=== PATIENT | male | born 1960 | race Caucasian/White ===

== ENCOUNTER 2021-03-19 07:32 | Day surgery (SDC) | payer BC ==
[2021-03-14 09:21] LABS: Absolute Lymphocytes (CBC) 1.8 K/uL (0.7-4.9); Hematocrit 42.2 % (39.6-49.0); Lymphocytes % 22.8 % (15.3-44.8); MPV 7.3 fL (7.6-11.3); RBC Red Blood Cell Count 4.63 M/uL (4.33-5.43)
[2021-03-14 09:30] LABS: Potassium 3.9 mmol/L (3.5-5.1)
--- NOTE | 2021-03-14 09:35 | RAD REPORT ---
EXAM DESCRIPTION: RAD - Chest Pa And Lat (2 Views) - 03/14/2021 9:16 am CLINICAL HISTORY: Pre Op COMPARISON: No comparisons FINDINGS: Lines: None. Lungs: No evidence of edema or pneumonia. Pleural: No significant pleural effusions or pneumothorax. Cardiac: The heart size is within normal limits. Bones: No acute fractures. Other: IMPRESSION: No acute cardiopulmonary disease.
--- NOTE | 2021-03-14 16:36 | EKG ---
Test Date: 2021-03-14 Test Time: 07:59:30 Panel Wirer: CRYSTLA MEASUREMENT RESULTS: Intervals: Rate: 54 [place]: 172 QRSD: 98 QT: 376 QTc: 356 [place]: P: 78 [place]: 172 QRS: 89 T: 76 INTERPRETIVE STATEMENTS: Sinus bradycardia Otherwise normal ECG No previous ECG available for comparison Electronically Signed On 03-14-21 16:35:27 CDT by Hardeep Walker
[2021-03-19] MEDS ORDERED: Ringers Lactate 1,000 ML IV ONE ×2 (08:13→12:31)
[2021-03-19] MEDS ORDERED: CEFAZOLIN/NS 1gm 1 GM/50 ML BAG ONE (08:13)
[2021-03-19] MEDS ORDERED: CELECOXIB 100 MG CAPSULE ONE (09:20)
[2021-03-19] MEDS ORDERED: ACETAMINOPHEN 500 MG TAB ONE (09:21)
--- NOTE | 2021-03-19 09:46 | P.HP ---
Date of Service: 03/19/21 PC: This 60-year-old male presents for a laparoscopic repair of a recurrent left inguinal hernia. HPC: Patient apparently had an open hernia repair done a number of years ago. Recently noticed a painful bulge in that area. Has pain radiating down to his testicle, and can feel that the bulge has returned. PSHx: NAD PMHx: Negative Social Hx: No known allergies Sys R: No cough, wheeze, shortness of breath. No chest pain or palpitations. Denies any urinary symptoms. O/E: Awake alert vital signs are stable HEENT: Within normal limits Chest: Chest movement equal bilaterally Abd: Soft nontender, in the left inguinal area has a palpable recurrence of his hernia [place]: Intact Data: Within normal limits Impression: Recurrent left inguinal hernia Plan: I will taken the operating room for laparoscopic repair of this recurrent left inguinal hernia. The risks of this procedure have been discussed. The possibility of bleeding, infection, injury to bowel blood vessels and surrounding structures was outlined. Once again the possibility of recurrence, infection, need for further surgeries and procedures was outlined. Chronic pain and other long-term effects were described. He understands and wants us to proceed.
[2021-03-19] MEDS ORDERED: FENTANYL CITR 100 MCG/2 ML ONE ×2 (09:56→11:06)
[2021-03-19] MEDS ORDERED: MIDAZOLAM HCL 2 MG/2 ML INJ ONE (09:57)
[2021-03-19] MEDS ORDERED: dexAMETHasone 10 MG/ML VIAL ONE (09:57)
[2021-03-19] MEDS ORDERED: ONDANSETRON 4 MG/2 ML VIAL ONE (09:57)
[2021-03-19] MEDS ORDERED: KETOROLAC 30 MG/ML INJ ONE (09:57)
[2021-03-19] MEDS ORDERED: LIDOCAINE 2% MPF 5 ML VIAL ONE (09:57)
[2021-03-19] MEDS ORDERED: propofoL 200 MG/20 ML VIAL IV ONE (09:57)
[2021-03-19] MEDS ORDERED: Phenylephrine HCl 10 MG/ML 1 ML VIAL ONE (10:19)
[2021-03-19] MEDS ORDERED: NS 0.9% VIAL 10 ML ONE (10:19)
[2021-03-19] MEDS ORDERED: EPHEDRINE SULF 50 MG/ML VIAL ONE (10:19)
[2021-03-19] MEDS ORDERED: ROCURONIUM 50 MG/5 ML VIAL IV ONE (11:20)
[2021-03-19] MEDS ORDERED: GLYCOPYRROLATE 0.2 MG/ML SYR ONE (11:38)
--- NOTE | 2021-03-19 11:56 | P.OP ---
Preoperative diagnosis: Painful recurrent left inguinal hernia Postoperative diagnosis: The same Primary procedure: Laparoscopic repair of recurrent left inguinal hernia Secondary procedure: Removal of hernia plug Other procedure(s): Tap block Anesthesia: General anesthesia Estimated blood loss: Less than 15 cc Specimen: Old hernia plug sent for ID Operative Technique: The patient brought the operating room and placed supine on the table. After the induction of adequate general endotracheal anesthesia, there the abdomen was prepped with a DuraPrep solution, and he was draped in the usual aseptic manner. A Diaz had been inserted during the prep as well. A subumbilical incision was made. This brought down through the skin and subcutaneous tissue. The Visiport was now used to enter the peritoneal cavity. A pneumoperitoneum was created to approximately 12 mmHg. The patient was now placed in marked Trendelenburg. We could visualize the left lower quadrant. The area that we could palpate the inguinal ring anatomically was identified. We could feel that there was a piece of mesh that was mobile underneath there. There was also evidence of recurrence of his hernia in that area. At this point the peritoneum was opened. Two 5 mm trochars having been placed in the left and right lower quadrants. We could identify the hernia defect. The cord was id entified. 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 This was brought well back into the peritoneal cavity. Medially we found where the plug had been placed. It was obviously loose and there was also evidence of a direct hernia in this area. The plug was dissected out and detached from the old repair. It was necessary to cut for Prolene sutures that were helping anchored in place. The plug having been removed attention was now turned back towards the anterior abdominal wall. Olivier's ligament was identified. A piece of medium 3D mesh was now placed into the peritoneal cavity. It was anchored to Olivier's ligament out laterally. The peritoneal dissection was now closed after deflating the peritoneal cavity to approximately 7 mmHg. At this point the was inspected to ensure adequate hemostasis. A bilateral Elvira block was done under direct vision using 0.5% Marcaine. The plug was removed from the peritoneal cavity. The umbilical trocar site was approximated using the Endo Close and an absorbable suture. At this point the pneumoperitoneum was collapsed, the trochars removed, and shay applied to the skin. At the end of the procedure the patient was in a stable condition was sent to the recovery room. Needle sponge instrument count were correct. The Diaz catheter had been discontinued.
[2021-03-19] MEDS ORDERED: HYDROCODONE/APAP 7.5/325 MG TAB PO PRN (12:12)
[2021-03-19] MEDS ORDERED: MORPHINE 4 MG/ML SYR IV PRN (12:12)
[2021-03-19] MEDS ORDERED: NA CHLORIDE 0.9% 1,000 ML IV SCH (12:12)
[2021-03-19] MEDS ORDERED: HYDROCODONE/APAP 7.5/325 MG TAB ONE (13:29)
[2021-03-19 13:46] VITALS: BP 108/55; TEMP 96.8
[2021-03-19 13:47] VITALS: O2SAT 96
== END 2021-03-19 13:35 | disposition home or self-care (01) ==
LOC: PRE 07:32
PROVIDERS: ATTEND Surgery
PROC: 0YU64JZ Supplement Left Inguinal Region with Synthetic Substitute, Percutaneous Endoscopic Approach (ICD-10-PCS; principal; 2021-03-19 09:15)
DX: K40.91 Unilateral inguinal hernia, without obstruction or gangrene, recurrent (principal); Z20.822 Contact with and (suspected) exposure to COVID-19
CPT/HCPCS: 93005; 85025; 80048; 36415; 71046; 49651; U0002; J2704; J2370; J2250; J3010 ×2; J1100; J0690; J7120 ×2; J2405